=== PATIENT | female | born 1960 | race Caucasian/White ===

== ENCOUNTER → 2019-09-24 | Outpatient (CLI) | payer MEDICARE | LOC: COL.VAS 13:40 | DX: I73.9 Peripheral vascular disease, unspecified (principal); G47.62 Sleep related leg cramps ==

== ENCOUNTER → 2019-12-15 | Outpatient (CLI) | payer MEDICARE | LOC: COL.RAD 12-14 10:30 | DX: N18.3 Chronic kidney disease, stage 3 (moderate) (principal); Q63.1 Lobulated, fused and horseshoe kidney ==

== ENCOUNTER 2019-12-31 06:39 | Day surgery (SDC) | payer MEDICARE ==
[~2019-12-31] VITALS: Ht 167.6 cm; Wt 102.3 kg
[2019-12-31 07:23] VITALS: BP 149/57; PULSE 82; TEMP 97.5
[2019-12-31] MEDS ORDERED: NORVASC 10MG10 MG PO (07:37)
[2019-12-31] MEDS ORDERED: PRINIVIL20 MG PO (07:37)
[2019-12-31] MEDS ORDERED: HUMALOG100 U/ML SQ (07:38)
[2019-12-31] MEDS ORDERED: MEVACOR 20M20 MG/TAB PO (07:38)
[2019-12-31] MEDS ORDERED: INVEGA6 MG PO (07:39)
[2019-12-31] MEDS ORDERED: SINGULAIR 110 MG/TAB PO (07:39)
[2019-12-31] MEDS ORDERED: LANTUS100 U/ML SQ (07:40)
[2019-12-31] MEDS ORDERED: GLUCOPHAGE1000 MG PO (07:40)
[2019-12-31] MEDS ORDERED: LYRICA 75MG CAP75 MG PO (07:41)
[2019-12-31] MEDS ORDERED: TRILIPIX 135MG PO (07:41)
[2019-12-31] MEDS ORDERED: DESYREL DIVIDO150 M1 PO (07:41)
[2019-12-31] MEDS ORDERED: ALDACTONE 25MG25 M1 PO (07:42)
[2019-12-31] MEDS ORDERED: PLAVIX 75MG TAB75 MG PO (07:42)
[2019-12-31] MEDS ORDERED: K-DUR20 MEQ PO (07:43)
[2019-12-31] MEDS ORDERED: DITROPAN 5MG TAB5 MG PO (07:43)
[2019-12-31] MEDS ORDERED: EFFEXOR100 MG PO (07:44)
[2019-12-31] MEDS ORDERED: MOBIC15 MG PO (07:45)
[2019-12-31] MEDS ORDERED: DIFLUCAN150 MG PO (07:45)
[2019-12-31] MEDS ORDERED: ZAROXOLYN 2.52.5 MG PO (07:46)
--- NOTE | 2019-12-31 07:47 | NUR ---
Patient did not bring current medication list and is poor historian and unable to give accurate informationl. Medications obtaine fron history. States only took blood pressure medication this moring and 10 units of Lantus insulin.
[2019-12-31 08:45] VITALS: BP 149/55; PULSE 82; TEMP 97.6
--- NOTE | 2019-12-31 08:45 | NUR ---
Patient brought back to [facility] [place] [facility] [place]. Ambulated to chair with one assist. Placed on monitors vital signs stable. Patient denies pain or nausea. Son in room. Report recieved from [place] [facility]. Patient requests juice and crackers. Warm blanket provided. Call [facility]att within reach. MD already spoke with son in regards to results.
[2019-12-31 09:00] VITALS: BP 168/64; PULSE 76
--- NOTE | 2019-12-31 09:00 | NUR ---
Patient tolerated food and drink without difficulty. Vital signs remains stable. Will contine to monitor.
[2019-12-31 09:15] VITALS: BP 146/65; PULSE 80
--- NOTE | 2019-12-31 09:15 | NUR ---
Vital signs stable Patient states she feels ready to go home. IV removed, intact. Discharge instructions reviewed with patient and son. All questions answered. Patient to get dressed at this time.
--- NOTE | 2019-12-31 09:25 | NUR ---
Patient brought down to lobby via wheel chair. Son to drive patient home. All belongings in hand.
== END 2019-12-31 09:25 | disposition home or self-care (01) ==
LOC: SDCO 06:39
DX: Z12.11 Encounter for screening for malignant neoplasm of colon (principal); D12.4 Benign neoplasm of descending colon; I73.9 Peripheral vascular disease, unspecified; E11.42 Type 2 diabetes mellitus with diabetic polyneuropathy; I12.9 Hypertensive chronic kidney disease with stage 1 through stage 4 chronic kidney disease, or unspecified chronic kidney disease; E11.22 Type 2 diabetes mellitus with diabetic chronic kidney disease; N18.3 Chronic kidney disease, stage 3 (moderate); F32.9 Major depressive disorder, single episode, unspecified; E75.5 Other lipid storage disorders; E66.9 Obesity, unspecified; J44.9 Chronic obstructive pulmonary disease, unspecified; F43.10 Post-traumatic stress disorder, unspecified; G89.29 Other chronic pain; E11.319 Type 2 diabetes mellitus with unspecified diabetic retinopathy without macular edema; F17.210 Nicotine dependence, cigarettes, uncomplicated; K58.0 Irritable bowel syndrome with diarrhea; Z85.3 Personal history of malignant neoplasm of breast; Z90.710 Acquired absence of both cervix and uterus; Z03.818 Encounter for observation for suspected exposure to other biological agents ruled out
CPT/HCPCS: J2704; J7030

== ENCOUNTER → 2020-04-25 | Outpatient (CLI) | payer MEDICARE ==
[~2020-04-25] MED LIST: ALDACTONE 25MG25 M1 PO; DESYREL DIVIDO150 M1 PO; DIFLUCAN150 MG PO; DITROPAN 5MG TAB5 MG PO; EFFEXOR100 MG PO; GLUCOPHAGE1000 MG PO; HUMALOG100 U/ML SQ; INVEGA6 MG PO; K-DUR20 MEQ PO; LANTUS100 U/ML SQ; LYRICA 75MG CAP75 MG PO; MEVACOR 20M20 MG/TAB PO; MOBIC15 MG PO; NORVASC 10MG10 MG PO; PLAVIX 75MG TAB75 MG PO; PRINIVIL20 MG PO; SINGULAIR 110 MG/TAB PO; TRILIPIX 135MG PO; ZAROXOLYN 2.52.5 MG PO
== END ==
LOC: BHSO 11:04
DX: F43.10 Post-traumatic stress disorder, unspecified (principal)